=== PATIENT | male | born 1990 | race Caucasian/White ===

== ENCOUNTER 2018-09-25 08:00 | Outpatient (RCR) | payer BC | END 2018-10-04 | LOC: OT 08:00 | PROVIDERS: ATTEND Specialist | DX: S46.39 Other injury of muscle, fascia and tendon of triceps (principal); M77.12 Lateral epicondylitis, left elbow; M25.522 Pain in left elbow; M25.531 Pain in right wrist; R53.1 Weakness | CPT/HCPCS: 97139 ==